=== PATIENT | female | born 1950 | race Caucasian/White ===

== ENCOUNTER 2020-09-06 09:43 | Outpatient (CLI) | payer OTHER, MEDICARE, SELFPAY | END 2020-09-06 09:44 | disposition home or self-care (01) | LOC: ANHCOVIDVC 09:43 | PROVIDERS: PCP Internal Medicine | DX: Z23 Encounter for immunization (principal) | CPT/HCPCS: 0001A; 91300 ==

== ENCOUNTER 2020-09-27 09:48 | Outpatient (CLI) | payer OTHER, MEDICARE, SELFPAY | END 2020-09-27 09:49 | disposition home or self-care (01) | LOC: ANHCOVIDVC 09:48 | PROVIDERS: PCP Internal Medicine | DX: Z23 Encounter for immunization (principal) | CPT/HCPCS: 0002A; 91300 ==

== ENCOUNTER 2021-04-17 01:59 | Day surgery (SDC) | payer OTHER, SELFPAY ==
[2021-04-02 11:11] VITALS: BMI 34.8
[2021-04-17 06:14] VITALS: BP 154/75; PULSE 99; RESP 16; TEMP 36.8; O2SAT 97; BMI 34.3
[2021-04-17] MEDS: LACTATED RINGERS 1,000 ML 150 ML IV CONT (06:26)
[2021-04-17 06:27] LABS: Glucose Point of Care 126 mg/dl (65-105)
--- NOTE | 2021-04-17 06:57 | WPDANESEPPF ---
Anes - Initial Pre Proc Eval Procedure: Operation Date: 04/17/21 07:30 Proposed Procedures p Screening Colonoscopy - César Howard MD Date/Time: 04/17/21 06:57 Surgeon: César Howard MD Pre Op Diagnosis: family hx of colon cancer Patient Data Age: 70 Gender: F Height: 1.65 m Weight: 93.7 kg Last Vital Signs Temp 36.8 C 04/17/21 06:14 Pulse 99 04/17/21 06:14 Resp 16 04/17/21 06:14 BP 154/75 H 04/17/21 06:14 Pulse Ox 97 04/17/21 06:14 Allergies Allergy/AdvReac Type Severity Reaction Status Date / Time iodine Allergy Unknown Other Verified 04/17/21 06:12 SHELLFISH Allergy Mild DIARRHEA Uncoded 04/17/21 06:12 VOMITING Home Medications Medication Instructions Recorded Confirmed Type ascorbic acid (vitamin C) 500 mg PO DAILY 04/02/21 04/17/21 History cranberry 400 mg PO DAILY 04/02/21 04/17/21 History docusate sodium 100 mg PO DAILY PRN 04/02/21 04/17/21 History doxycycline monohydrate 100 mg PO DAILY 04/02/21 04/17/21 History glimepiride 2 mg PO DAILY 04/02/21 04/17/21 History levocetirizine 5 mg PO DAILY 04/02/21 04/17/21 History levothyroxine 75 mcg PO DAILY 04/02/21 04/17/21 History oxybutynin chloride 10 mg PO DAILY 04/02/21 04/17/21 History simvastatin 20 mg PO DAILY 04/02/21 04/17/21 History trazodone 100 mg PO DAILY 04/02/21 04/17/21 History vitamin E 100 unit PO DAILY 04/02/21 04/17/21 History Laboratory Tests 04/17/21 06:19 POC Capillary Glucose 126 mg/dl H mg/dl (65-105) Patient hx anesthesia problems: none Family hx anesthesia problems: none Results Review: All pre-operative results and documents have been reviewed as part of the pre-operative evaluation. [facility] Past Medical History Medical History (Updated 04/17/21 @ 06:57 by Monroe Valladares MD) Diabetes HTN (hypertension) Hyperlipidemia Hypothyroidism Obesity Surgical History Surgical History (Updated 04/17/21 @ 06:58 by Monroe Valladares MD) H/O colonoscopy History of total knee arthroplasty Family History Family History Mother Hypertension Father Hypertension Family history of diabetes mellitus in first degree relative Acute myocardial infarction Other Family history of malignant neoplasm of breast Malignant neoplasm of prostate Social History Social History Smoking status: Never smoker Alcohol intake: current Alcohol use details: On occasion Living arrangements: with family Spiritual care concerns: No Anes - Eval Final PreProcedure Day of Procedure 04/17/21 06:57 Patient weight: obese Heart: regular rate and rhythm Lungs: clear to auscultation Airway: Mallampati scale class II Neurological: alert and oriented Last oral intake: >/= 8 hours ASA classification: III Emergent: no Anesthetic plan: proceed Anesthesia type and monitoring: general GIVS and standard monitoring Results Review: All pre-operative results and documents have been reviewed as part of the pre-operative evaluation. Informed Consent: The patient's anesthetic plan and its attendant risks and benefits were discussed with the patient/family/POA. Questions were solicited and answers provided to the satisfaction of the patient/family/POA.
--- NOTE | 2021-04-17 07:24 | WPDGICN ---
Assessment and Plan Assessment and plan (1) History of colon polyps: Code(s): Z86.010 - Personal history of colonic polyps Status: Acute Assessment and Plan: Patient has a personal history of colon polyps for this reason surveillance colonoscopy is advised at 5 year intervals. Further recommendations will be given after endoscopy. (2) Family history of colonic polyps: Code(s): Z83.71 - Family history of colonic polyps Status: Acute Assessment and Plan: Patient reports that her daughter has had colon polyps. A cousin has had colon cancer several other family members as well. Plan is to continue surveillance colonoscopy at 5 year intervals. GI Consult Note Consult date/time: 04/17/21 07:24 HPI: Lesvia Kong is a 70 year old female Presents for neoplasia screening. Patient has a history of colon polyps previously performed by Dr. Raphael. patient's last colonoscopy was 2013 at which time AVMs were identified. Her family history is significant for a cousin with colon cancer. Her daughter has had colon resection for colon polyps. Patient herself has had colon polyps on previous colonoscopies. She presents today for screening colonoscopy. She reports that her current weight appetite bowel movements are normal. She denies abdominal pain she has had no bleeding. [facility] Past Medical History Medical History (Updated 04/17/21 @ 07:26 by César Howard MD) Diabetes HTN (hypertension) Hyperlipidemia Hypothyroidism Obesity Surgical History Surgical History (Updated 04/17/21 @ 06:58 by Monroe Valladares MD) H/O colonoscopy History of total knee arthroplasty Family History Family History Mother Hypertension Father Hypertension Family history of diabetes mellitus in first degree relative Acute myocardial infarction Other Family history of malignant neoplasm of breast Malignant neoplasm of prostate Social History Social History Smoking status: Never smoker Alcohol intake: current Alcohol use details: On occasion Living arrangements: with family Spiritual care concerns: No Meds Home Medications and Allergies Home Medications Medication Instructions Recorded Confirmed Type ascorbic acid (vitamin C) 500 mg PO DAILY 04/02/21 04/17/21 History cranberry 400 mg PO DAILY 04/02/21 04/17/21 History docusate sodium 100 mg PO DAILY PRN 04/02/21 04/17/21 History doxycycline monohydrate 100 mg PO DAILY 04/02/21 04/17/21 History glimepiride 2 mg PO DAILY 04/02/21 04/17/21 History levocetirizine 5 mg PO DAILY 04/02/21 04/17/21 History levothyroxine 75 mcg PO DAILY 04/02/21 04/17/21 History oxybutynin chloride 10 mg PO DAILY 04/02/21 04/17/21 History simvastatin 20 mg PO DAILY 04/02/21 04/17/21 History trazodone 100 mg PO DAILY 04/02/21 04/17/21 History vitamin E 100 unit PO DAILY 04/02/21 04/17/21 History Allergies Allergy/AdvReac Type Severity Reaction Status Date / Time iodine Allergy Unknown Other Verified 04/17/21 06:12 SHELLFISH Allergy Mild DIARRHEA Uncoded 04/17/21 06:12 VOMITING Vital Signs Vital Signs - 24 hr 04/17/21 06:14 Temperature 98.3 F Pulse Rate 99 Respiratory Rate 16 Blood Pressure 154/75 H Pulse Oximetry 97 Exam Narrative: Physical exam reveals patient to be alert. Vital signs stable. HEENT exam is unremarkable. Patient is anicteric. Lungs are clear to auscultation and percussion. Heart is without murmur or extra sounds. Abdominal exam bowel sounds are present soft nontender with no organomegaly. Digital external rectal exam is normal.
[2021-04-17 07:47] VITALS: BP 127/69; PULSE 88; RESP 17; O2SAT 98
[2021-04-17 07:57] VITALS: BP 140/74; PULSE 84; RESP 17; O2SAT 98
[2021-04-17 08:07] VITALS: BP 152/83; PULSE 86; RESP 21; O2SAT 100
== END 2021-04-17 08:23 | disposition home or self-care (01) ==
PROVIDERS: PCP Emergency Medicine; Visit Provider Internal Medicine Gastroenterology
PROC: 0DJD8ZZ Inspection of Lower Intestinal Tract, Via Natural or Artificial Opening Endoscopic (ICD-10-PCS; CPT 45378; principal; 2021-04-17 07:30)
DX: Z12.11 Encounter for screening for malignant neoplasm of colon (principal); D12.0 Benign neoplasm of cecum; I10 Essential (primary) hypertension; E11.9 Type 2 diabetes mellitus without complications; E78.5 Hyperlipidemia, unspecified; E03.9 Hypothyroidism, unspecified; K64.8 Other hemorrhoids; Z96.659 Presence of unspecified artificial knee joint; Z83.71 Family history of colonic polyps; Z80.0 Family history of malignant neoplasm of digestive organs
CPT/HCPCS: 45385; 82948; 88305; J2704; J7120

== ENCOUNTER 2021-12-24 10:24 | Outpatient (CLI) | payer OTHER, SELFPAY ==
--- NOTE | ~2021-12-24 | XR_ITS ---
EXAMINATION: XR lumbar spine 2-3V DATE: 12/24/2021 10:43 INDICATION: Low back pain TECHNIQUE: Anteroposterior and lateral views of the lumbar spine, and cone-down lateral view of the l umbosacral junction were obtained. COMPARISON: 03/11/2006 FINDINGS: There are 20 degrees of lumbar levoscoliosis. No fracture is identified. There is severe lo ss of intervertebral disc space height at L2-3. There are 2 mm of retrolisthesis of L2 on L3. Vertebr al body alignment is otherwise normal. The vertebral body heights are maintained. Small degenerative osteophytes project from the anterior endplates of multiple vertebral bodies. There is severe facet o steoarthritis of the lower lumbar spine. Calcified atherosclerosis is noted. There is cholelithiasis. IMPRESSION: 1. Severe lumbar spondylosis at L2-3 without acute findings. 2. Cholelithiasis. Reviewed, dictated and finalized at location A.
== END 2021-12-24 10:25 | disposition home or self-care (01) ==
PROVIDERS: PCP Family Medicine; Visit Provider Nurse Practitioner Family
DX: M54.50 Low back pain, unspecified (principal); G89.29 Other chronic pain; M47.816 Spondylosis without myelopathy or radiculopathy, lumbar region; K80.20 Calculus of gallbladder without cholecystitis without obstruction
CPT/HCPCS: 72100

== ENCOUNTER 2022-11-21 10:16 | Outpatient (CLI) | payer OTHER, SELFPAY ==
--- NOTE | ~2022-11-21 | XR_ITS ---
Left Knee Technique: AP, lateral, and sunrise views were obtained. Clinical History: Pain Findings: No fracture or dislocation is seen. Total knee arthroplasty hardware in place. No hardware complication is evident. Soft tissues are unremarkable. No joint effusion is seen. Impression: No acute abnormality. Total knee arthroplasty hardware in place. Reviewed, dictated and finalized at location . Impression: No acute abnormality. Total knee arthroplasty hardware in place.
== END 2022-11-21 10:17 | disposition home or self-care (01) ==
PROVIDERS: PCP Family Medicine; Visit Provider Family Medicine
DX: R29.898 Other symptoms and signs involving the musculoskeletal system (principal); Z96.659 Presence of unspecified artificial knee joint
CPT/HCPCS: 73564

== ENCOUNTER 2023-01-04 22:31 | Emergency (ER) | payer OTHER, SELFPAY ==
--- NOTE | ~2023-01-04 | XR_ITS ---
EXAMINATION: XR hip RT min 3V w AP pelvis DATE: 01/05/2023 01:37 INDICATION: Right hip pain. Fall. TECHNIQUE: An anteroposterior view of the pelvis and 3 views of right hip were obtained. COMPARISON: None. FINDINGS: There is levoscoliosis and moderate spondylosis of lumbar spine. No fracture. There is mild osteoarthritis of hips. IMPRESSION: 1. Mild osteoarthritis of the hips. Reviewed, dictated and finalized at location A.
--- NOTE | ~2023-01-04 | CT_ITS ---
EXAMINATION: CT brain wo con DATE: 01/05/2023 01:25 INDICATION: Head injury. TECHNIQUE: Computed tomography (CT) of the head was performed without intravenous contrast. The mA wa s adjusted according to patient size. Iterative reconstruction technique was employed. The dose-lengt h product was 605.33 mGy-cm. COMPARISON: Brain MRI 03/11/2014 FINDINGS: There is no intracranial hemorrhage, acute infarction, or abnormal intracranial mass lesion . The ventricles are normal in size. The orbits are normal. The paranasal sinuses are clear. There ar e trace bilateral mastoid effusions. IMPRESSION: 1. Normal brain. Reviewed, dictated and finalized at location A. IMPRESSION: 1. Normal brain.
--- NOTE | ~2023-01-04 | XR_ITS ---
EXAMINATION: XR knee RT 3V DATE: 01/05/2023 01:37 INDICATION: Right knee injury. Fall. TECHNIQUE: 3 views of right knee were obtained. COMPARISON: None. FINDINGS: There is a total right knee arthroplasty with patellar resurfacing in near-anatomic alignme nt. No fracture. No periprosthetic lucency to suggest loosening or infection. There is a small knee j oint effusion with loose bodies. IMPRESSION: 1. Total right knee arthroplasty in near-anatomic alignment. 2. Small right knee joint effusion with loose bodies. Reviewed, dictated and finalized at location A.
--- NOTE | ~2023-01-04 | CT_ITS ---
EXAMINATION: CT facial & cervical spine wo DATE: 01/05/2023 01:25 INDICATION: Head injury. TECHNIQUE: Computed tomography (CT) of the maxillofacial region and cervical spine was performed with out intravenous contrast. Automated exposure control and iterative reconstruction technique were empl oyed. The dose-length product was 447.56 mGy-cm. COMPARISON: Sinuses CT 06/21/2011 FINDINGS: MAXILLOFACIAL CT: There is soft tissue swelling and soft tissue gas in the left frontal scalp. There is mild mucosal th ickening in the paranasal sinuses. There is rightward deviation of the nasal septum. There is a fract ure of right nasal bone. CERVICAL SPINE CT: There is kyphosis of cervical spine. There is 3 degrees levocurvature of cervical spine. Vertebral felix dy heights are normal. There is mildly decreased disc height at C3-C4 and C5-C6 and moderately decrea sed disc height at C6-C7. The following disc levels are specifically discussed: C2-C3: There is mild bilateral uncovertebral joint osteoarthritis. There is ankylosis of the facet rosalba ints with moderate right and mild left hypertrophy. There is mild bilateral neural foraminal stenosis . There is no central canal stenosis. C3-C4: There is ankylosis of the uncovertebral joints with mild hypertrophy. There is ankylosis of th e facet joints with moderate bilateral hypertrophy. There is mild bilateral neural foraminal stenosis . There is no central canal stenosis. C4-C5: There is mild right and moderate left uncovertebral joint osteoarthritis. There is severe bila teral facet joint osteoarthritis. There is mild bilateral neural foraminal stenosis. There is no cent ral canal stenosis. C5-C6: There is mild bilateral uncovertebral joint osteoarthritis. There is ankylosis of the facet rosalba ints with moderate hypertrophy. There is mild bilateral neural foraminal stenosis. There is no centra l canal stenosis. C6-C7: There is mild right and severe left uncovertebral joint osteoarthritis. There is moderate righ t and severe left facet joint osteoarthritis. There is mild left neural foraminal stenosis. There is mild central canal stenosis. C7-T1: There is no uncovertebral joint osteoarthritis. There is mild right and severe left facet join t osteoarthritis. There is mild left neural foraminal stenosis. There is no central canal stenosis. IMPRESSION: 1. Right nasal bone fracture. 2. Moderate cervical spondylosis. Reviewed, dictated and finalized at location A.
[2023-01-04 22:34] VITALS: BP 151/92; PULSE 103; RESP 18; TEMP 36.4; O2SAT 100
--- NOTE | 2023-01-05 00:14 | ED.GENADULT ---
HPI - General Adult General Chief complaint: Fall Stated complaint: fall Time Seen by Provider: 01/05/23 00:02 Source: patient Mode of arrival: ambulatory Limitations: no limitations History of Present Illness HPI narrative: This is a 72-year-old female who presents to the ED with chief complaint of a mechanical ground-level fall that occurred just prior to arrival. Patient states she was walking when she tripped over a large generator cord on the ground. She states she fell face first and onto her right knee. She has subsequent right knee pain, mild right hip pain and facial pain. She reports a laceration to the forehead. Denies any LOC. Denies blood thinners. She is able to recall the entirety of the events. Denies any further site of pain or injury. Denies numbness or weakness or neurologic complaints. Past surgical history of bilateral knee arthroplasties. Related Data Home Medications Medication Instructions Recorded Confirmed ascorbic acid (vitamin C) 500 mg 500 mg PO DAILY 04/02/21 11/18/22 tablet cranberry 400 mg capsule 400 mg PO DAILY 04/02/21 11/18/22 docusate sodium 100 mg capsule 100 mg PO DAILY PRN Constipation 04/02/21 11/18/22 vitamin E 100 unit capsule 100 unit PO DAILY 04/02/21 11/18/22 ketoconazole 2 % shampoo 1 applic topical 2XW 10/25/21 11/18/22 Allergies Allergy/AdvReac Type Severity Reaction Status Date / Time iodine Allergy Unknown Other Verified 01/05/23 00:31 SHELLFISH Allergy Mild DIARRHEA Uncoded 11/18/22 14:27 VOMITING PMFSH Past Medical History Medical History (Updated 01/05/23 @ 03:14 by Reynaldo Kessler PA-C) BMI 31.0-31.9,adult BMI 32.0-32.9,adult BMI 33.0-33.9,adult BMI greater than 30 Chronic lumbar pain Diabetes Diabetes mellitus type 2, uncontrolled HTN (hypertension) Hyperlipidemia Hypothyroidism Left leg weakness Obesity Surgical History Surgical History (Updated 11/18/22 @ 15:08 by Joey Lam MD) H/O colonoscopy History of total knee arthroplasty Knee joint replacement status Family History Family History Mother Hypertension Hyperlipidemia Father Hypertension Family history of diabetes mellitus in first degree relative Acute myocardial infarction Hyperlipidemia Other Family history of malignant neoplasm of breast Malignant neoplasm of prostate Social History Social History Smoking status: Never smoker Second hand tobacco smoke exposure: Yes Alcohol intake: current Alcohol use details: On occasion Substance use: never Substance use type: does not use Living arrangements: with family Occupation/Education: retired Gender identity (if verbalized by the patient): Female Spiritual care concerns: No Exam Narrative: GENERAL: Well-appearing, well-nourished, and in no acute distress. HEAD: Normocephalic, atraumatic. EYES: PERRLA and EOMI. ENT: Nares clear, no rhinorrhea or epistaxis. Mucous membranes moist. Oropharynx without tonsillar hypertrophy exudate or other lesions. Tenderness to the nose externally. There is mild swelling to the nose. Mild bruising to the nose and forehead. No obvious deformity. NECK: Supple. No adenopathy or masses. CHEST: No respiratory distress. Clear to auscultation. No wheezes rales or rhonchi HEART: Regular rate and rhythm. No murmur heard. Normal peripheral pulses. ABDOMEN: Soft, nontender, nondistended, normal active bowel sounds. MSK: No gross deformities. She has tenderness throughout the right knee. Mild pain with logroll of the right hip. No CT LS spine tenderness or deformity. SKIN: 2.5 cm laceration diagonally in the center of the forehead. Bleeding controlled. No overt contamination. There is also a very small superficial laceration to the bridge of the nose. NEURO: Alert and oriented x3. No focal deficits. PSYCH: Normal mood and affect. Course V
[2023-01-05 00:30] VITALS: BP 165/71; PULSE 96; RESP 18; O2SAT 100
--- NOTE | 2023-01-05 00:30 | PC.NURSE ---
Pt states she is not up to date on tetanus shot.
[2023-01-05] MEDS: HYDROcodone/acetaminophen (*CRX) 7.5-325 MG TABLET 1 TAB PO (03:34)
[2023-01-05 03:40] VITALS: BP 164/79; PULSE 76; RESP 18; O2SAT 98
== END 2023-01-05 03:49 | disposition home or self-care (01) ==
PROVIDERS: Emergency Provider Physician Assistant; PCP Family Medicine
DX: S02.2XXA Fracture of nasal bones, initial encounter for closed fracture (principal); S01.81XA Laceration without foreign body of other part of head, initial encounter; E11.9 Type 2 diabetes mellitus without complications; I10 Essential (primary) hypertension; E78.5 Hyperlipidemia, unspecified; E03.9 Hypothyroidism, unspecified; W01.0XXA Fall on same level from slipping, tripping and stumbling without subsequent striking against object, initial encounter
CPT/HCPCS: 70450; 70486; 72125; 73502; 73562; 99284; A9270

== ENCOUNTER → 2023-01-18 07:28 | Outpatient (CLI) | payer OTHER, SELFPAY ==
--- NOTE | ~2023-01-18 | MR_ITS ---
EXAMINATION: MR knee RT wo con DATE: 01/18/2023 08:24 INDICATION: Right knee pain TECHNIQUE: Magnetic resonance imaging (MRI) of the right knee was performed without intravenous contr ast. Sequences included sagittal and coronal PD-weighted FSE and axial, sagittal and coronal fluid s ensitive FSE STIR. COMPARISON: None. FINDINGS: There is extensive metallic magnetic field artifact associated with the components of a right total k nee arthroplasty with patellar resurfacing and a long stem tibial component. This obscures portions o f the immediately adjacent bone and soft tissues. Where not obscured the marrow signal appears normal with no evident fracture some reactive edema or pathologic marrow replacing process. Small enthesoph yte at the proximal pole of the patella. Minimal right knee joint effusion at the medial and lateral gutters of the suprapatellar pouch. Visualized portions of the muscles and tendons about the knee and proximal calf are unremarkable. IMPRESSION: 1. Right total knee arthroplasty with patellar resurfacing with minimal knee joint effusion and witho ut evident acute osseous abnormality. Reviewed, dictated and finalized at location A. IMPRESSION: 1. Right total knee arthroplasty with patellar resurfacing with minimal knee rosalba int effusion and without evident acute osseous abnormality.
== END ==
PROVIDERS: PCP Family Medicine; Visit Provider Physician Assistant Medical
DX: M25.561 Pain in right knee (principal)
CPT/HCPCS: 73721

== ENCOUNTER 2023-04-16 15:35 | Outpatient (CLI) | payer OTHER, SELFPAY ==
--- NOTE | ~2023-04-16 | XR_ITS ---
XR humerus LT DATE: 04/16/2023 16:00 INDICATION: Left upper arm pain following a fall TECHNIQUE: AP and lateral views COMPARISON: None FINDINGS: There is degenerative joint space narrowing and spurring at the acromion clavicular joint. There is mild osteoarthritis at the glenohumeral joint. No fracture or dislocation, periosteal reaction or bone destruction of the left humerus. Normal alignment at the acromioclavicular, glenohumeral and elbow joints. IMPRESSION: Degenerative change at the acromioclavicular and glenohumeral joints Reviewed, dictated and finalized at location B. IMPRESSION: Degenerative change at the acromioclavicular and glenohumeral joint s
--- NOTE | ~2023-04-16 | XR_ITS ---
XR clavicle RT DATE: 04/16/2023 16:00 INDICATION: Bone hypertrophy TECHNIQUE: AP and angled AP views of right clavicle COMPARISON: None FINDINGS: There is joint space narrowing and mild spurring at the acromioclavicular joint consistent with degenerative change. No fracture or dislocation, periosteal reaction or bone destruction of the right clavicle. IMPRESSION: Degenerative change at the right acromioclavicular joint Reviewed, dictated and finalized at location B.
== END 2023-04-16 15:36 | disposition home or self-care (01) ==
LOC: ANHIMG 15:37
PROVIDERS: PCP Family Medicine; Visit Provider Nurse Practitioner Family
DX: M89.319 Hypertrophy of bone, unspecified shoulder (principal); M24.112 Other articular cartilage disorders, left shoulder; M24.111 Other articular cartilage disorders, right shoulder
CPT/HCPCS: 73000; 73060